=== PATIENT | female | born 1960 | race Caucasian/White ===

== ENCOUNTER → 2016-06-10 | Outpatient (CLI) | payer BC, OTHER ==
--- NOTE | ~2016-06-10 | ECHO ---
Transthoracic Echocardiography Report (TTE) Demographics Patient Name SKYLAR BURKS Date of Study 06/10/2016 Patient Number [id number] Visit Number [id number] Date of 1960 Room Number Gender Female Number Age 55 year(s) Referring Sivan Bhatia Livestock Speculator Skylar Haley, Physician RT,RVT,RDCS Physician Interpreting Marvinjanina Sloanuradha Manager Consumer Physician MD Supervising Ordering Sivan Bhatia MD, MD/MLP Physician Nurse Stress [employer] Drawer Conclusions Summary Normal LV/RV size and systolic function. The estimated left ventricular ejection fraction is 70%. Mild concentric left ventricular hypertrophy. Mild LA enlargement. Diastolic flow assessment reveals a pseudonormal pattern consistent with Grade II diastolic dysfunction . E/e' is elevated at 18. No significant valvular abnormalities. There is mild pulmonary hypertension. The pulmonary pressure (RVSP) is 45 mmHg. No evidence of pericardial effusion. Procedure Type of Study TTE procedure:2D Echocardiogram, M-Mode, Doppler , Color Doppler. Procedure Date Date: 06/10/2016 Start: 01:52 PM Study Location: Echo Lab Technical Quality: Adequate visualization Indications:Dyspnea/SOB. Appropriate Use Criteria: 9 Patient Status: Routine HR: 67 bpm BP: 140/82 mmHg M-Mode/2D Measurements LV Diastolic Dimension: 3.92 cm LV Systolic Dimension: 2.23 cm LV Septum Diastolic: 1.06 cm LV PW Diastolic: 1.34 cm AO Root Dimension: 2.1 cm Cardiac Output: 4.32 l/min AV Cusp Separation: 1.5 cm RV Diastolic Dimension: 3.2 cm LA volume: 34 ml MV EPSS: 0.4 cm LVOT: 1.7 cm RV Base: 4 cm LVOT VTI: 28.4 cm RV Mid: 3 cm LV Stroke volume: 64.43 ml TAPSE: 7.8 cm Doppler Measurements AV Peak Velocity: 2.08 m/s MV Peak E-Wave: 1.17 m/s AV Peak Gradient: 17.31 mmHg MV Peak A-Wave: 0.93 m/s AV Mean Gradient: 9 mmHg MV E/A Ratio: 1.26 LVOT Peak Velocity: 1.28 m/s MV P1/2t: 69 msec TR Gradient:22.09 mmHg PV Peak Velocity: 1.36 m/s Estimated RAP:10 mmHg PV Peak Gradient: 7.4 mmHg Estimated RVSP: 32 mmHg Estimated PASP: 32.09 mmHg E' Septal Velocity: 0.06 m/s A' Septal Velocity: 0.1 m/s MV E/E' Ratio: 18.1 Findings Left Ventricle Mild concentric left ventricular hypertrophy. Right Ventricle Normal right ventricle structure and function. Left Atrium The left atrium is mildly dilated. Right Atrium Normal right atrial size. IVC imaging is consistent with normal RA pressures. Mitral Valve Normal mitral valve structure and function. Aortic Valve The aortic valve is mildly sclerotic. Tricuspid Valve There is mild pulmonary hypertension. The pulmonary pressure (RVSP) is 45 mmHg. Pulmonic Valve Normal pulmonic valve structure and function. Pericardial Effusion No evidence of pericardial effusion. Miscellaneous Visualized portions of the aortic root and ascending aorta appear normal in size. Pleural Effusion No evidence of pleural effusion. Contractility Score LV regional wall motion:(0-Non visualized 1-Normal 2-Hypokinesis 3-Akinesis 4-Dyskinesis 5-Aneurysm) Signature dtt: MIREYA PATEL dtd: 06/10/16 1352 Physician Self Edit
== END | disposition disaster alternative care site (69) ==
LOC: GCAR 13:29 → GRAD 16:00
DX: D49.6 Neoplasm of unspecified behavior of brain (principal); I27.2 Other secondary pulmonary hypertension; I77.89 Other specified disorders of arteries and arterioles; R06.00 Dyspnea, unspecified
CPT/HCPCS: A9577